=== PATIENT | female | born 1955 | race Caucasian/White ===

== ENCOUNTER 2020-01-20 14:39 | Emergency (ER) | payer SELFPAY ==
[~2020-01-20] VITALS: Ht 152.4 cm; Wt 116.1 kg
== END 2020-01-20 17:11 | disposition home or self-care (01) ==
LOC: ER 14:39
DX: Z76.0 Encounter for issue of repeat prescription (principal); F17.200 Nicotine dependence, unspecified, uncomplicated; Z88.6 Allergy status to analgesic agent
CPT/HCPCS: 99281

== ENCOUNTER 2020-02-21 21:19 | Inpatient (IN) | payer OTHER ==
[~2020-02-21] VITALS: Ht 149.9 cm; Wt 103.8 kg
[2020-02-21] MEDS ORDERED: CELE100 (21:43)
[2020-02-21 22:05] LABS: Calcium, Ionized (POC) 0.98 mmol/L (1.10-1.46); Chloride (POC) 101 mmol/L (98-108); Creatinine (POC) 1.4 mg/dL (0.6-1.0); Glucose (ISTAT POC) 123 mg/dL (70-99); Hemoglobin (POC) 13.3 g/dL (12.0-16.0); Potassium (POC) 3.2 mmol/L (3.5-5.5); Sodium (POC) 142 mmol/L (135-148); Total CO2 (POC) 31 mmol/L (21-32)
[2020-02-21 22:06] LABS: BASOPHILS ABSOLUTE AUTO 0.06 K/mm3 (0.00-0.23); BASOPHILS PERCENT AUTO 1 % (0-2); EOSINOPHILS ABSOLUTE AUTO 0.09 K/mm3 (0.00-0.68); EOSINOPHILS PERCENT AUTO 1 % (0-6); Hematocrit 38.1 % (33.0-51.0); Hemoglobin 12.5 g/dL (11.5-16.0); IMMATURE GRAN ABSOLUTE AUTO 0.06 K/mm3 (0.00-0.10); IMMATURE GRAN PERCENT AUTO 1 % (0-1); LYMPHOCYTES ABSOLUTE AUTO 1.62 K/mm3 (0.84-5.20); LYMPHOCYTES PERCENT AUTO 22 % (21-46); MONOCYTES ABSOLUTE AUTO 0.51 K/mm3 (0.16-1.47); MONOCYTES PERCENT AUTO 7 % (4-13); Mean Corpuscular HGB 31.7 pg (26.0-34.0); Mean Corpuscular HGB Conc 32.8 g/dL (31.5-36.5); Mean Corpuscular Volume 97 fL (80-100); NEUTROPHILS ABSOLUTE AUTO 5.09 K/mm3 (1.96-9.15); NEUTROPHILS PERCENT AUTO 69 % (41-73); Platelet Count 178 K/mm3 (150-400); RDW Coefficient Variation 15.1 % (11.7-14.2); RDW Standard Deviation 54.2 fL (35.1-46.3); Red Blood Cell Count 3.94 M/mm3 (3.80-5.20); White Blood Cell Count 7.43 K/mm3 (4.00-11.30)
[2020-02-21 22:32] LABS: Alanine Aminotransfer (ALT/SGP 34 U/L (12-78); Albumin, Blood 3.6 g/dL (3.4-5.0); Albumin/Globulin Ratio 0.9 (0.8-1.8); Alk Phos 54 U/L (50-136); Anion Gap 9 mmol/L (6-16); Aspartate Aminotrans (AST/SGOT 39 U/L (12-37); Bilirubin, Total 0.3 mg/dL (0.1-1.0); Blood Urea Nitrogen 19 mg/dL (8-24); Bun/Creatinine Ratio 14.2 (12.0-20.0); CO2, Blood 28 mmol/L (21-32); Calcium, Blood 8.7 mg/dL (8.5-10.1); Chloride, Blood 103 mmol/L (98-108); Creatinine, Blood 1.34 mg/dL (0.40-1.00); Free Thyroxine 0.36 ng/dL (0.70-1.60); Glomerular Filtration Rate 42 (60-); Glucose, Blood 120 mg/dL (70-99); Potassium, Blood 3.2 mmol/L (3.5-5.5); Sodium, Blood 140 mmol/L (136-145); Total Protein, Blood 7.6 g/dL (6.4-8.2); Troponin I <0.015 ng/mL (0.000-0.040)
[2020-02-21 22:39] LABS: PCO2 Arterial 49.7 mmHg (35-45)
[2020-02-22 00:05] LABS: U Amphetamine Screen Not Detected; U Barbituate Screen Not Detected; U Benzodiazapine Screen Not Detected; U Buprenorphine Screen Not Detected; U Cannabinoids Screen Not Detected; U Cocaine Screen Not Detected; U Methadone Screen Not Detected; U Methamphetamine Screen Not Detected; U Opiates Screen Not Detected; U Oxycodone Screen Not Detected; U Phencyclidine Screen Not Detected; U Propoxyphene Screen Not Detected
[2020-02-22 00:38] LABS: Blood, Urine 1+ (Neg); Color, Urine Amber (P-Yellow); Glucose Qualitative, Urine Neg (Neg); Ketones, Urine 1+ (Neg); Leukocyte Esterase, Urine 1+ (Neg); Nitrite, Urine Neg (Neg); Protein, Urine 2+ (Neg); Urobilinogen, Urine 1+ (Normal)
[2020-02-22 00:39] LABS: Appearance, Urine Hazy (Clear); Bilirubin, Urine 1+ (Neg)
[2020-02-22 00:44] LABS: Bacteria Many /hpf; Hyaline Casts TNTC /lpf (0-2); Mucus Mod (0-Heavy); Red Blood Cells, Urine 0-2 /hpf (0-2); Squamous Epithelial Cells Few /hpf (Few); White Blood Cells, Urine 25-50 /hpf (0-5)
[2020-02-22 01:33] LABS: BASOPHILS ABSOLUTE AUTO 0.07 K/mm3 (0.00-0.23); BASOPHILS PERCENT AUTO 1 % (0-2); EOSINOPHILS ABSOLUTE AUTO 0.06 K/mm3 (0.00-0.68); EOSINOPHILS PERCENT AUTO 1 % (0-6); Hematocrit 38.1 % (33.0-51.0); Hemoglobin 12.6 g/dL (11.5-16.0); IMMATURE GRAN ABSOLUTE AUTO 0.05 K/mm3 (0.00-0.10); IMMATURE GRAN PERCENT AUTO 1 % (0-1); LYMPHOCYTES ABSOLUTE AUTO 1.61 K/mm3 (0.84-5.20); LYMPHOCYTES PERCENT AUTO 17 % (21-46); MONOCYTES ABSOLUTE AUTO 0.55 K/mm3 (0.16-1.47); MONOCYTES PERCENT AUTO 6 % (4-13); Mean Corpuscular HGB 32.1 pg (26.0-34.0); Mean Corpuscular HGB Conc 33.1 g/dL (31.5-36.5); Mean Corpuscular Volume 97 fL (80-100); Mean Platelet Volume 10.7 fL (9.1-12.4); NEUTROPHILS ABSOLUTE AUTO 7.34 K/mm3 (1.96-9.15); NEUTROPHILS PERCENT AUTO 76 % (41-73); Platelet Count 179 K/mm3 (150-400); RDW Coefficient Variation 15.2 % (11.7-14.2); RDW Standard Deviation 53.9 fL (35.1-46.3); Red Blood Cell Count 3.92 M/mm3 (3.80-5.20); White Blood Cell Count 9.68 K/mm3 (4.00-11.30)
[2020-02-22 01:56] LABS: Albumin, Blood 3.9 g/dL (3.4-5.0); Bilirubin, Total 0.4 mg/dL (0.1-1.0); Bun/Creatinine Ratio 14.4 (12.0-20.0); Calcium, Blood 8.7 mg/dL (8.5-10.1); Creatinine, Blood 1.32 mg/dL (0.40-1.00); Potassium, Blood 3.5 mmol/L (3.5-5.5); Total Protein, Blood 7.9 g/dL (6.4-8.2)
[2020-02-22 03:42] LABS: Source, Urine Clean Catch
[2020-02-22 03:45] LABS: Appearance, Urine Clear (Clear); Bilirubin, Urine Neg (Neg); Blood, Urine 1+ (Neg); Color, Urine Yellow (P-Yellow); Glucose Qualitative, Urine Neg (Neg); Ketones, Urine Neg (Neg); Leukocyte Esterase, Urine 1+ (Neg); Nitrite, Urine Neg (Neg); Protein, Urine 2+ (Neg); Specific Gravity, Urine 1.025 (1.003-1.022); Urobilinogen, Urine NORM (Normal)
[2020-02-22 04:05] LABS: U Amphetamine Screen Not Detected; U Barbituate Screen Not Detected; U Benzodiazapine Screen Not Detected; U Buprenorphine Screen Not Detected; U Cannabinoids Screen Not Detected; U Cocaine Screen Not Detected; U Methadone Screen Not Detected; U Methamphetamine Screen Not Detected; U Opiates Screen Not Detected; U Oxycodone Screen Not Detected; U Phencyclidine Screen Not Detected; U Propoxyphene Screen Not Detected
[2020-02-22 04:12] LABS: Red Blood Cells, Urine 0-2 /hpf (0-2)
[2020-02-22 04:13] LABS: Bacteria Many /hpf; Hyaline Casts 25-50 /lpf (0-2); Mucus Mod (0-Heavy); Squamous Epithelial Cells Not Seen /hpf (Few)
[2020-02-25 05:53] LABS: Free Thyroxine 0.58 ng/dL (0.70-1.60); Thyroid Stimulating Hormone 95.6 uIU/mL (0.360-4.800)
[2020-02-26 06:14] LABS: Anion Gap 6 mmol/L (6-16); Blood Urea Nitrogen 10 mg/dL (8-24); Bun/Creatinine Ratio 12.8 (12.0-20.0); CO2, Blood 29 mmol/L (21-32); Calcium, Blood 8.8 mg/dL (8.5-10.1); Chloride, Blood 107 mmol/L (98-108); Creatinine, Blood 0.78 mg/dL (0.40-1.00); Glomerular Filtration Rate >60 (60-); Glucose, Blood 97 mg/dL (70-99); Sodium, Blood 142 mmol/L (136-145)
[2020-02-29 07:38] LABS: Albumin, Blood 3.6 g/dL (3.4-5.0); Anion Gap 5 mmol/L (6-16); Blood Urea Nitrogen 24 mg/dL (8-24); Bun/Creatinine Ratio 28.7 (12.0-20.0); CO2, Blood 29 mmol/L (21-32); Calcium, Blood 8.7 mg/dL (8.5-10.1); Chloride, Blood 108 mmol/L (98-108); Creatinine, Blood 0.84 mg/dL (0.40-1.00); Free Thyroxine 0.94 ng/dL (0.70-1.60); Glomerular Filtration Rate >60 (60-); Glucose, Blood 100 mg/dL (70-99); Phosphorus, Blood 3.7 mg/dL (2.5-4.9); Potassium, Blood 3.8 mmol/L (3.5-5.5); Sodium, Blood 142 mmol/L (136-145)
[2020-02-29] MEDS ORDERED: ASPI81CH PO (15:32)
[2020-02-29] MEDS ORDERED: ATOR20 PO (15:32)
[2020-02-29] MEDS ORDERED: REFRESH CELLUV1 EACH BOTHEYES (15:33)
[2020-02-29] MEDS ORDERED: NIFE60ER PO (15:34)
[2020-02-29] MEDS ORDERED: SYNTHROID0.2 MG PO (15:34)
== END 2020-02-29 19:26 | disposition home health service (06) | DRG 81 ==
LOC: ER 21:19 → ERHOLD 23:43 → ICUW 23:43 → MEDS 23:43 → ICUW 02-22 00:58 → MEDS 02-23 15:47
PROVIDERS: Emergency Medicine; Hospitalist; Internal Medicine Endocrinology, Diabetes & Metabolism; ADMIT Internal Medicine
DX: E03.5 Myxedema coma (principal); Z68.42 Body mass index [BMI] 45.0-49.9, adult; G93.49 Other encephalopathy; J44.9 Chronic obstructive pulmonary disease, unspecified; Z86.73 Personal history of transient ischemic attack (TIA), and cerebral infarction without residual deficits; E66.01 Morbid (severe) obesity due to excess calories; F32.9 Major depressive disorder, single episode, unspecified; Z91.14 Patient's other noncompliance with medication regimen; Z90.09 Acquired absence of other part of head and neck; R40.2422 Glasgow coma scale score 9-12, at arrival to emergency department; F17.210 Nicotine dependence, cigarettes, uncomplicated; E87.6 Hypokalemia; I12.9 Hypertensive chronic kidney disease with stage 1 through stage 4 chronic kidney disease, or unspecified chronic kidney disease; N18.3 Chronic kidney disease, stage 3 (moderate); Z91.81 History of falling; G62.9 Polyneuropathy, unspecified
CPT/HCPCS: 36415; 36600; 51702; 70450; 71045; 80047; 80048; 80053; 80069; 80400; 81001; 82533; 82803; 82947; 83605; 83735; 83880; 84439; 84443; 84484; 85014; 85025; 87040; 87077; 87086; 87186; 93005; 93010; 93306; 96361; 96374; 96375; 97110; 97112; 97116; 97162; 99285-25; A9270; A9270-GY; J0360; J1650; J1720; J3480; J7030; U0002

== ENCOUNTER → 2020-05-31 | Outpatient (CLI) | payer MEDICARE ==
[~2020-05-31] MED LIST: ASPI81CH PO; ATOR20 PO; CELE100; NIFE60ER PO; REFRESH CELLUV1 EACH BOTHEYES; SYNTHROID0.2 MG PO
[2020-05-31 18:34] LABS: Free Thyroxine 2.75 ng/dL (0.70-1.60)
[2020-05-31 18:39] LABS: Thyroid Stimulating Hormone 0.057 uIU/mL (0.360-4.800)
== END ==
LOC: LAB SHORT 17:23 → LAB 17:23
PROVIDERS: Physician Assistant
DX: E89.0 Postprocedural hypothyroidism (principal)
CPT/HCPCS: 84439; 84443

== ENCOUNTER 2020-07-08 12:50 | Inpatient (IN) | payer MEDICARE ==
[~2020-07-08] VITALS: Ht 149.9 cm; Wt 81.2 kg
[~2020-07-08 12:50] MED LIST changes: -ASPI81CH PO; -ATOR20 PO; -NIFE60ER PO; -SYNTHROID0.2 MG PO
[2020-07-08 13:46] LABS: BASOPHILS ABSOLUTE AUTO 0.07 K/mm3 (0.00-0.23); BASOPHILS PERCENT AUTO 1 % (0-2); EOSINOPHILS ABSOLUTE AUTO 0.15 K/mm3 (0.00-0.68); EOSINOPHILS PERCENT AUTO 2 % (0-6); Hematocrit 40.7 % (33.0-51.0); Hemoglobin 13.1 g/dL (11.5-16.0); IMMATURE GRAN ABSOLUTE AUTO 0.02 K/mm3 (0.00-0.10); IMMATURE GRAN PERCENT AUTO 0 % (0-1); LYMPHOCYTES ABSOLUTE AUTO 1.87 K/mm3 (0.84-5.20); LYMPHOCYTES PERCENT AUTO 24 % (21-46); MONOCYTES ABSOLUTE AUTO 0.66 K/mm3 (0.16-1.47); MONOCYTES PERCENT AUTO 9 % (4-13); Mean Corpuscular HGB Conc 32.2 g/dL (31.5-36.5); Mean Corpuscular Volume 84 fL (80-100); NEUTROPHILS PERCENT AUTO 64 % (41-73); Platelet Count 258 K/mm3 (150-400); RDW Coefficient Variation 15.5 % (11.7-14.2); Red Blood Cell Count 4.86 M/mm3 (3.80-5.20); White Blood Cell Count 7.67 K/mm3 (4.00-11.30)
[2020-07-08 14:09] LABS: Alanine Aminotransfer (ALT/SGP 28 U/L (12-78); Albumin, Blood 3.4 g/dL (3.4-5.0); Albumin/Globulin Ratio 0.8 (0.8-1.8); Alk Phos 100 U/L (50-136); Anion Gap 6 mmol/L (6-16); Aspartate Aminotrans (AST/SGOT 27 U/L (12-37); Bilirubin, Total 0.3 mg/dL (0.1-1.0); Blood Urea Nitrogen 15 mg/dL (8-24); Bun/Creatinine Ratio 29.1 (12.0-20.0); CO2, Blood 27 mmol/L (21-32); Calcium, Blood 9.1 mg/dL (8.5-10.1); Chloride, Blood 110 mmol/L (98-108); Creatinine, Blood 0.52 mg/dL (0.40-1.00); Globulin, Blood 4.2 g/dL (2.2-4.0); Glomerular Filtration Rate >60 (60-); Glucose, Blood 100 mg/dL (70-99); Potassium, Blood 3.5 mmol/L (3.5-5.5); Sodium, Blood 143 mmol/L (136-145); Total Protein, Blood 7.6 g/dL (6.4-8.2)
[2020-07-08] MEDS ORDERED: EUTHYROX175 MCG PO (16:35)
[2020-07-08] MEDS ORDERED: NIFE60ER PO (16:36)
[2020-07-08] MEDS ORDERED: Aspir 8181 MG PO (16:36)
[2020-07-08] MEDS ORDERED: ATOR40TA PO (16:36)
--- NOTE | 2020-07-08 18:39 | NUR ---
Received report from Tana RN-ED, patient arrived to unit with delaney and required assistance to slide from gurney to bed. A/Ox3, pleasant. Flu vaccine given per patient request. Bed in lowest position, call light in reach. Will report to oncgisselle RN.
--- NOTE | 2020-07-09 06:35 | NUR ---
SHIFT SUMMARY: VSS. AFEB. AAOX3. ABLE TO COMMUNICATE NEEDS. PERRL. VERY SLIGHT DROOP OF L SIDE OF MOUTH. L CORE MANAGER/PUSH/PULL WEAK COMPARED TO R. GROSS MOTOR MOVEMENT ONLY. REPORTS N/T TO L ARM AND LEG. NO NEW SYMPTOMS. PT IS APPROPRIATELY CONVERSATIONAL BUT WILL ALSO MOAN OUT LOUD WHEN UNCOMFORTABLE RATHER THAN USE CALL BUTTON. REPOSITIONED FOR COMFORT, PT REFUSING PAIN MEDS AT THIS TIME. INCONTINENT. LSCTA W/ DIM BASES. OCC NON-PRODUCTIVE COUGH. PT IS A CURRENT EVERY DAY SMOKER BUT REFUSES NICOTINE SUPPLEMENTS AT THIS TIME. NO ACUTE CHANGES OVERNIGHT. WILL CONT TO MONITOR.
--- NOTE | 2020-07-09 10:49 | NUR ---
Echo done by Belem Mccormack RDCS.
--- NOTE | 2020-07-09 12:05 | NUR ---
D/C CAROTID DUPLEX PATIENT RECEIVED CTA OF HEAD/NECK. PER DR. CARTER, CANCEL US CAROTID. US TECH NOTIFIED.
--- NOTE | 2020-07-09 17:10 | NUR ---
Shift Summary A/Ox4, pleasant and cooperative with care. Has been tearful today d/t acute health concerns, but motivated to improve mobility. Worked with PT/OT/ST today, tolerated all well. Neuro checks remain unchanged since this morning (see neuro assessment). MRI completed. Patient has poor trunk control and unable to sit upright in chair or bedside commode. 2p max assist with gait belt. Continent of bowel, inc/con of bladder. Denies pain, had bowel movement today. Tolerating mechanical soft diet well. Lung sounds clear. Will report to oncoming RN.
[2020-07-09 17:55] LABS: Influenza A, PCR Negative (NEGATIVE); Influenza B, PCR Negative (NEGATIVE); Resp Syncytial Virus, PCR Negative (NEGATIVE); SARS-Cov-2 (COVID-19) PCR, MMC Negative (NEGATIVE)
--- NOTE | 2020-07-09 22:14 | NUR ---
PT REQUESTED TO NO LONGER WEAR SCD'S
--- NOTE | 2020-07-10 04:18 | NUR ---
SHIFT SUMMARY ASSUMED CARE OF PT AT 1900. PT IS A/OX4, PT HAS L SIDED WEAKNESS. HEART SOUNDS REGULAR, TELE SHOWS SINUS @ 81. LUNG SOUNDS DIMINISHED. PT WAS CONTINENT OF BOWEL BUT INCONTINENT OF URINE. PT TOOK MEDS WHOLE IN APPLE SAUCE. NO ACUTE EVENTS DURING THE NIGHT. PT SLEPT T/O THE NIGHT. CALL LIGHT IN REACH, BED IN LOWEST POSTION, WILL CONTINUE TO MONITOR.
--- NOTE | 2020-07-10 16:39 | NUR ---
Shift Summary Worked with PT/OT today, tolerated well. Up in chair for lunch and dinner with 2 max assist. Tearful at times. C/O L shoulder pain from flaccid arm, pillow support provided to prevent subluxation. Incontinent, does not call for brief changes despite education on preventing skin breakdown. Will continue to monitor and check brief routinely. Plan is to discharge to [facility] in [place] tomorrow @ 4476.
[2020-07-10] MEDS ORDERED: ACET325 PO (18:29)
[2020-07-10] MEDS ORDERED: Plavix75 MG PO (18:29)
[2020-07-10] MEDS ORDERED: DULCOLAX400 MG/5 M PO (18:30)
--- NOTE | 2020-07-11 07:52 | NUR ---
SHIFT SUMMARY PATIENT ALERT AND ORIENTED. HAD NO COMPLAINTS OF PAIN OVERNIGHT AND WAS ABLE TO SLEEP WELL. IV PATENT AND FLUSHED. BED IN LOWEST POSITION WITH WHEELS LOCKED AND ALARM ON. CALL LIGHT WITHIN REACH. REPORT GIVEN TO ONCOMING RN.
--- NOTE | 2020-07-11 09:41 | NUR ---
DISCHARGE DISCHARGE TO [facility] IN [place]. ATTEMPTED TO CALL REPORT, RN DID NOT ANSWER PHONE, PHONE NUMBER LEFT FOR RETURN CALL. PT PICKED UP FOR W/C TRANSPORT AT THIS TIME.
--- NOTE | 2020-07-11 09:52 | NUR ---
REPORT GIVEN TO FILIPPO RUDOLPH RN, THIS RN WILL BE AVAILABLE TODAY IF MORE QUESTIONS ARISE
== END 2020-07-11 09:39 | DRG 65 ==
LOC: ER 12:50 → MEDS 17:26 → ENPENDDIS 07-10 14:48 → MEDS 07-11 09:39
PROVIDERS: Emergency Medicine; ADMIT Internal Medicine
DX: I63.50 Cerebral infarction due to unspecified occlusion or stenosis of unspecified cerebral artery (principal); I69.354 Hemiplegia and hemiparesis following cerebral infarction affecting left non-dominant side; Z68.42 Body mass index [BMI] 45.0-49.9, adult; E66.01 Morbid (severe) obesity due to excess calories; E78.5 Hyperlipidemia, unspecified; F17.210 Nicotine dependence, cigarettes, uncomplicated; F32.9 Major depressive disorder, single episode, unspecified; I10 Essential (primary) hypertension; J44.9 Chronic obstructive pulmonary disease, unspecified; E89.0 Postprocedural hypothyroidism
CPT/HCPCS: 0241U; 36415; 70450; 70496; 70498; 70551; 80053; 84484; 85025; 92526; 92610; 93005; 93010; 93308; 93321; 96372; 97110; 97112; 97162; 97166; 97530; 99285-25; A9270; A9270-GY; G0008; G0378; J1650; Q2038; Q9967

== ENCOUNTER → 2021-01-01 | Outpatient (CLI) | payer MEDICARE, OTHER ==
[~2021-01-01] MED LIST changes: +ACET325 PO; +ATOR40TA PO; +Aspir 8181 MG PO; +DULCOLAX400 MG/5 M PO; +EUTHYROX175 MCG PO; +NIFE60ER PO; +Plavix75 MG PO
[2021-01-01 13:12] LABS: Source, Urine Clean Catch
[2021-01-01 15:40] LABS: Appearance, Urine Hazy (Clear); Bilirubin, Urine Neg (Neg); Blood, Urine Neg (Neg); Color, Urine Yellow (P-Yellow); Glucose Qualitative, Urine Neg (Neg); Ketones, Urine Neg (Neg); Leukocyte Esterase, Urine Neg (Neg); Nitrite, Urine Neg (Neg); Protein, Urine Neg (Neg); Urobilinogen, Urine NORM (Normal)
[2021-01-01 16:11] LABS: Red Blood Cells, Urine Not Seen /hpf (0-2); Squamous Epithelial Cells Mod /hpf (Few); White Blood Cells, Urine 0-2 /hpf (0-5)
[2021-01-01 16:12] LABS: Bacteria Mod /hpf
== END | disposition home or self-care (01) ==
LOC: LAB HH 13:10
PROVIDERS: Physician Assistant
DX: N39.0 Urinary tract infection, site not specified (principal)
CPT/HCPCS: 81001; 87086

== ENCOUNTER → 2021-01-29 | Outpatient (CLI) | payer MEDICARE, OTHER ==
[2021-01-29 19:54] LABS: BASOPHILS ABSOLUTE AUTO 0.08 K/mm3 (0.00-0.23); BASOPHILS PERCENT AUTO 1 % (0-2); EOSINOPHILS ABSOLUTE AUTO 0.24 K/mm3 (0.00-0.68); EOSINOPHILS PERCENT AUTO 3 % (0-6); Hematocrit 43.4 % (33.0-51.0); Hemoglobin 13.9 g/dL (11.5-16.0); IMMATURE GRAN ABSOLUTE AUTO 0.03 K/mm3 (0.00-0.10); IMMATURE GRAN PERCENT AUTO 0 % (0-1); LYMPHOCYTES ABSOLUTE AUTO 1.76 K/mm3 (0.84-5.20); LYMPHOCYTES PERCENT AUTO 19 % (21-46); MONOCYTES ABSOLUTE AUTO 0.67 K/mm3 (0.16-1.47); MONOCYTES PERCENT AUTO 7 % (4-13); Mean Corpuscular HGB 29.1 pg (26.0-34.0); Mean Corpuscular Volume 91 fL (80-100); Mean Platelet Volume 11.2 fL (9.1-12.4); NEUTROPHILS ABSOLUTE AUTO 6.49 K/mm3 (1.96-9.15); NEUTROPHILS PERCENT AUTO 70 % (41-73); Platelet Count 287 K/mm3 (150-400); RDW Standard Deviation 43.8 fL (35.1-46.3); Red Blood Cell Count 4.77 M/mm3 (3.80-5.20); White Blood Cell Count 9.27 K/mm3 (4.00-11.30)
[2021-01-29 20:17] LABS: Alanine Aminotransfer (ALT/SGP 21 U/L (12-78); Albumin, Blood 3.6 g/dL (3.4-5.0); Albumin/Globulin Ratio 0.7 (0.8-1.8); Alk Phos 129 U/L (50-136); Anion Gap 6 mmol/L (6-16); Aspartate Aminotrans (AST/SGOT 9 U/L (12-37); Bilirubin, Total 0.3 mg/dL (0.1-1.0); Blood Urea Nitrogen 16 mg/dL (8-24); Bun/Creatinine Ratio 24.6 (12.0-20.0); CO2, Blood 28 mmol/L (21-32); Calcium, Blood 9.4 mg/dL (8.5-10.1); Chloride, Blood 107 mmol/L (98-108); Creatinine, Blood 0.65 mg/dL (0.40-1.00); Free Thyroxine 1.52 ng/dL (0.70-1.60); Glomerular Filtration Rate >60 (60-); Glucose, Blood 86 mg/dL (70-99); Potassium, Blood 3.7 mmol/L (3.5-5.5); Sodium, Blood 141 mmol/L (136-145); Total Protein, Blood 8.6 g/dL (6.4-8.2); Triiodothyronine, Free 2.56 pg/mL (2.18-3.98)
== END | disposition home or self-care (01) ==
LOC: LAB SHORT 15:10
PROVIDERS: Physician Assistant
DX: E03.9 Hypothyroidism, unspecified (principal); R53.83 Other fatigue
CPT/HCPCS: 80053; 84439; 84443; 84481; 85025

== ENCOUNTER 2021-10-07 18:35 | Inpatient (IN) | payer OTHER ==
[~2021-10-07] VITALS: Ht 149.9 cm; Wt 93.6 kg
[2021-10-07 20:18] LABS: BASOPHILS ABSOLUTE AUTO 0.03 K/mm3 (0.00-0.23); BASOPHILS PERCENT AUTO 0 % (0-2); EOSINOPHILS ABSOLUTE AUTO 0.04 K/mm3 (0.00-0.68); EOSINOPHILS PERCENT AUTO 1 % (0-6); Hematocrit 51.4 % (33.0-51.0); Hemoglobin 16.9 g/dL (11.5-16.0); IMMATURE GRAN ABSOLUTE AUTO 0.02 K/mm3 (0.00-0.10); IMMATURE GRAN PERCENT AUTO 0 % (0-1); LYMPHOCYTES ABSOLUTE AUTO 1.23 K/mm3 (0.84-5.20); LYMPHOCYTES PERCENT AUTO 18 % (21-46); MONOCYTES ABSOLUTE AUTO 0.22 K/mm3 (0.16-1.47); MONOCYTES PERCENT AUTO 3 % (4-13); Mean Corpuscular HGB 29.8 pg (26.0-34.0); Mean Corpuscular HGB Conc 32.9 g/dL (31.5-36.5); Mean Corpuscular Volume 91 fL (80-100); Mean Platelet Volume 10.9 fL (9.1-12.4); NEUTROPHILS ABSOLUTE AUTO 5.17 K/mm3 (1.96-9.15); NEUTROPHILS PERCENT AUTO 77 % (41-73); Platelet Count 106 K/mm3 (150-400); RDW Coefficient Variation 16.9 % (11.7-14.2); RDW Standard Deviation 55.5 fL (35.1-46.3); Red Blood Cell Count 5.68 M/mm3 (3.80-5.20); White Blood Cell Count 6.71 K/mm3 (4.00-11.30)
[2021-10-07 20:37] LABS: Alanine Aminotransfer (ALT/SGP 73 U/L (12-78); Albumin, Blood 3.5 g/dL (3.4-5.0); Albumin/Globulin Ratio 0.8 (0.8-1.8); Alk Phos 112 U/L (50-136); Anion Gap 4 mmol/L (6-16); Aspartate Aminotrans (AST/SGOT 67 U/L (12-37); Bilirubin, Total 0.2 mg/dL (0.1-1.0); Blood Urea Nitrogen 20 mg/dL (8-24); Bun/Creatinine Ratio 22.3 (12.0-20.0); CO2, Blood 32 mmol/L (21-32); Calcium, Blood 9.4 mg/dL (8.5-10.1); Chloride, Blood 108 mmol/L (98-108); Ethanol (Alcohol), Blood, Med <3 mg/dL; Globulin, Blood 4.5 g/dL (2.2-4.0); Glomerular Filtration Rate >60 (60-); Glucose, Blood 134 mg/dL (70-99); Sodium, Blood 144 mmol/L (136-145)
[2021-10-07 21:24] LABS: U Amphetamine Screen DETECTED; U Methamphetamine Screen DETECTED; U Opiates Screen DETECTED
[2021-10-07 21:25] LABS: U Barbituate Screen Not Detected; U Benzodiazapine Screen Not Detected; U Buprenorphine Screen Not Detected; U Cannabinoids Screen Not Detected; U Cocaine Screen Not Detected; U Methadone Screen Not Detected; U Oxycodone Screen Not Detected; U Phencyclidine Screen Not Detected; U Propoxyphene Screen Not Detected
[2021-10-07 21:54] LABS: Source, Urine Straight Cath
[2021-10-07 22:07] LABS: Bilirubin, Urine Neg (Neg); Blood, Urine 1+ (Neg); Glucose Qualitative, Urine Neg (Neg); Ketones, Urine Neg (Neg); Leukocyte Esterase, Urine 1+ (Neg); Nitrite, Urine Pos (Neg); Protein, Urine 1+ (Neg); Specific Gravity, Urine 1.025 (1.003-1.022); Urobilinogen, Urine 1+ (Normal)
[2021-10-07 22:14] LABS: Appearance, Urine Hazy (Clear); Color, Urine Amber (P-Yellow); Squamous Epithelial Cells Rare /hpf (Few)
[2021-10-07 22:15] LABS: Bacteria Many /hpf
[2021-10-08 03:03] LABS: Influenza A, PCR NEGATIVE (NEGATIVE); Influenza B, PCR NEGATIVE (NEGATIVE); Resp Syncytial Virus, PCR NEGATIVE (NEGATIVE); SARS-Cov-2 (COVID-19) PCR, MMC NEGATIVE (NEGATIVE)
[2021-10-08 03:21] LABS: BASOPHILS ABSOLUTE AUTO 0.03 K/mm3 (0.00-0.23); BASOPHILS PERCENT AUTO 1 % (0-2); EOSINOPHILS ABSOLUTE AUTO 0.04 K/mm3 (0.00-0.68); EOSINOPHILS PERCENT AUTO 1 % (0-6); Hematocrit 40.6 % (33.0-51.0); Hemoglobin 13.4 g/dL (11.5-16.0); IMMATURE GRAN ABSOLUTE AUTO 0.03 K/mm3 (0.00-0.10); IMMATURE GRAN PERCENT AUTO 1 % (0-1); LYMPHOCYTES PERCENT AUTO 24 % (21-46); MONOCYTES ABSOLUTE AUTO 0.22 K/mm3 (0.16-1.47); MONOCYTES PERCENT AUTO 4 % (4-13); Mean Corpuscular Volume 91 fL (80-100); NEUTROPHILS ABSOLUTE AUTO 3.78 K/mm3 (1.96-9.15); NEUTROPHILS PERCENT AUTO 70 % (41-73); Platelet Count 94 K/mm3 (150-400); RDW Coefficient Variation 16.5 % (11.7-14.2); RDW Standard Deviation 54.8 fL (35.1-46.3); Red Blood Cell Count 4.47 M/mm3 (3.80-5.20)
[2021-10-08 04:00] LABS: Alanine Aminotransfer (ALT/SGP 54 U/L (12-78); Albumin, Blood 2.6 g/dL (3.4-5.0); Albumin/Globulin Ratio 0.8 (0.8-1.8); Alk Phos 85 U/L (50-136); Anion Gap 5 mmol/L (6-16); Aspartate Aminotrans (AST/SGOT 54 U/L (12-37); Bilirubin, Total 0.2 mg/dL (0.1-1.0); Blood Urea Nitrogen 17 mg/dL (8-24); Bun/Creatinine Ratio 24.2 (12.0-20.0); CO2, Blood 27 mmol/L (21-32); Calcium, Blood 7.9 mg/dL (8.5-10.1); Chloride, Blood 116 mmol/L (98-108); Globulin, Blood 3.3 g/dL (2.2-4.0); Glomerular Filtration Rate >60 (60-); Glucose, Blood 93 mg/dL (70-99); Potassium, Blood 3.4 mmol/L (3.5-5.5); Sodium, Blood 148 mmol/L (136-145); Total Protein, Blood 5.9 g/dL (6.4-8.2)
--- NOTE | 2021-10-08 09:39 | NUR ---
CARE OF PT ASSUMED AT 0700. PT OBTUNDED. OPENS EYES BRIEFLY WITH STERNAL RUB. DOES NOT FOLLOW ANY DIRECTIONS. BP IS LABILE W SOFT PRESSURES. PT HAS POOR GAG, NT SUCTIONED BY RT THIS AM. THICK DARK YELLOW SECRETIONS SUCTIONED. PT DESATURATED TO 85% ON 2L VIA N/C. N/C MOVED TO MOUTH AND INCREASED TO 4L. SATS NOW >95%. DR CAVAZOS AT BEDSIDE THIS AM, FULL REPORT GIVEN. PICC LINE TO BE PLACED. PT'S GIVEN UPDATE, MRI SCREENING FILLED OUT OVER PHONE. PT SKIN COVERED IN DIRT; PT BATHED. REPORT FROM THAT THEY ARE HOMELESS. D51/2NS ORDERED AT 100CC/HR.
--- NOTE | 2021-10-08 11:07 | NUR ---
MRI TO BE HELD FOR NOW. PT DESATURATED TO MID 80'S. VENTI MASK PLACED. 10L/45% PT REQUIRED NT SUCTIONING BY RT. PT IS SLIGHTLY MORE AWAKE. OPENS EYES SPONT. ABLE TO WEAKLY MATHEMATICS INSTRUCTOR TO COMMAND EQUAL/BILAT. DR CAVAZOS UPDATED. BP REMAINS LABILE, MORE HYPERTENSIVE NOW.
--- NOTE | 2021-10-08 11:57 | NUR ---
POWERGLIDE PLACED TO ALIYA. NASAL TRUMPET PLACED BY RT. DR CARTER AT BEDSIDE TO SEE PT; FULL UPDATE GIVEN.
--- NOTE | 2021-10-08 12:10 | NUR ---
Patient's friend, Buffy, asks stops me in the hallway and is in tears. He tells me about pt's medical history, their relationship (he states thatey have been for 3 yrs) and his spiritual beliefs. I provide therapeutic listening, emotional support and prayer. Patient expresses gratitude and shows signs of being comforted. I will continue to remain available to patient and family.
[2021-10-08 13:22] LABS: Bun/Creatinine Ratio 17.6 (12.0-20.0); Calcium, Blood 7.9 mg/dL (8.5-10.1); Creatinine, Blood 1.02 mg/dL (0.40-1.00); Potassium, Blood 4.6 mmol/L (3.5-5.5)
--- NOTE | 2021-10-08 17:20 | NUR ---
U/0 200 FOR LAST NIGHT AND TODAY'S SHIFT. STOKES CATH FLUSHED AND IS PATENT. DR CAVAZOS CALLED AND NOTIFIED. 500CC FLUID BOLUS ORDERED. WITHIN 30MIN PT STARTED PRODUCING MORE URINE. U/O UP TO 275. PT REMIAINS OBTUNDED W NASAL TRUMPET IN PLACE. PT REQUIRED NT SUCTION SEVERAL TIMES THIS SHIFT.
--- NOTE | 2021-10-08 19:15 | NUR ---
ASSUMPTION OF CARE PT VSS ON CURRENT TREATMENTS. NO S/S OF ACUTE DISTRESS NOTED AT TIME OF ASSUMPTION OF CARE
[2021-10-09 04:37] LABS: BASOPHILS ABSOLUTE AUTO 0.02 K/mm3 (0.00-0.23); BASOPHILS PERCENT AUTO 0 % (0-2); EOSINOPHILS ABSOLUTE AUTO 0.01 K/mm3 (0.00-0.68); EOSINOPHILS PERCENT AUTO 0 % (0-6); Hematocrit 41.9 % (33.0-51.0); Hemoglobin 13.8 g/dL (11.5-16.0); IMMATURE GRAN ABSOLUTE AUTO 0.09 K/mm3 (0.00-0.10); IMMATURE GRAN PERCENT AUTO 1 % (0-1); LYMPHOCYTES ABSOLUTE AUTO 0.95 K/mm3 (0.84-5.20); LYMPHOCYTES PERCENT AUTO 8 % (21-46); MONOCYTES ABSOLUTE AUTO 0.24 K/mm3 (0.16-1.47); MONOCYTES PERCENT AUTO 2 % (4-13); Mean Corpuscular HGB 29.6 pg (26.0-34.0); Mean Corpuscular HGB Conc 32.9 g/dL (31.5-36.5); Mean Corpuscular Volume 90 fL (80-100); NEUTROPHILS ABSOLUTE AUTO 11.35 K/mm3 (1.96-9.15); NEUTROPHILS PERCENT AUTO 90 % (41-73); Platelet Count 86 K/mm3 (150-400); RDW Coefficient Variation 17.1 % (11.7-14.2); RDW Standard Deviation 56.2 fL (35.1-46.3); Red Blood Cell Count 4.67 M/mm3 (3.80-5.20); White Blood Cell Count 12.66 K/mm3 (4.00-11.30)
[2021-10-09 05:09] LABS: Alanine Aminotransfer (ALT/SGP 55 U/L (12-78); Albumin, Blood 2.7 g/dL (3.4-5.0); Albumin/Globulin Ratio 0.7 (0.8-1.8); Alk Phos 88 U/L (50-136); Anion Gap 7 mmol/L (6-16); Aspartate Aminotrans (AST/SGOT 56 U/L (12-37); Bilirubin, Total 0.4 mg/dL (0.1-1.0); Blood Urea Nitrogen 14 mg/dL (8-24); Bun/Creatinine Ratio 17.9 (12.0-20.0); CO2, Blood 25 mmol/L (21-32); Calcium, Blood 7.9 mg/dL (8.5-10.1); Chloride, Blood 113 mmol/L (98-108); Creatinine, Blood 0.78 mg/dL (0.40-1.00); Free Thyroxine 0.58 ng/dL (0.70-1.60); Globulin, Blood 3.7 g/dL (2.2-4.0); Glomerular Filtration Rate >60 (60-); Glucose, Blood 158 mg/dL (70-99); Potassium, Blood 3.5 mmol/L (3.5-5.5); Sodium, Blood 145 mmol/L (136-145); Total Protein, Blood 6.4 g/dL (6.4-8.2); Triiodothyronine, Free 2.65 pg/mL (2.18-3.98)
--- NOTE | 2021-10-09 09:17 | NUR ---
CARE OF PT ASSUMED AT 0700. PT OPENS EYE SPONT. ATTEMPTS TO NOD HEAD TO QUESTIONS. ABLE TO COMMUNITY ARTS CENTRE MANAGER HANDS TO COMMAND, WEAKLY WITH VERY SLOW RESPONSE TO QUESTIONS. PT MOANS ONLY. STRONGER COUGH AND GAG TODAY. SATS 98% ON RA. NASAL TRUMPET STILL IN PLACE. PT CONT TO HAVE HTN AND DIASTOLIC HTN. TEMP 96.7. DR CAVAZOS AT BEDSIDE THIS AM; FULL UPDATE GIVEN. D51/2NS AT 100.
--- NOTE | 2021-10-09 12:17 | NUR ---
DR CAVAZOS CALLED FOR HTN 195/125. LEBATOLOL 10MG GIVEN W GOOD EFFECT. NO OTHER CHANGES. BP NOW 119/93
--- NOTE | 2021-10-09 18:22 | NUR ---
PT SLEPT MOST OF THE SHIFT, WAKING UP W EACH TURN. PT CONT'S TO HAVE GOOD EYE CONTACT, ABLE TO FOLLOW SIMPLE COMMANDS, AND NOD HEAD TO QUESTIONS. PT REMAINS NON-VERBAL OTHER THAN MOANS.
--- NOTE | 2021-10-09 19:10 | NUR ---
ASSUMPTION OF CARE PT CURRENTLY SLEEPING AND WAKENS EASILY TO VERBAL STIMULI. SHE IS RECEIVING D5 1/2NS AT 100MLS/HR. STOKES PATENT AND DRAINING PALE YELLOW/CLEAR URINE. VSS AT THIS TIME, SEE SHIFT ASSESSMENT.
[2021-10-10 03:23] LABS: BASOPHILS ABSOLUTE AUTO 0.03 K/mm3 (0.00-0.23); BASOPHILS PERCENT AUTO 0 % (0-2); EOSINOPHILS ABSOLUTE AUTO 0.05 K/mm3 (0.00-0.68); EOSINOPHILS PERCENT AUTO 1 % (0-6); Hematocrit 38.6 % (33.0-51.0); IMMATURE GRAN ABSOLUTE AUTO 0.04 K/mm3 (0.00-0.10); IMMATURE GRAN PERCENT AUTO 0 % (0-1); LYMPHOCYTES ABSOLUTE AUTO 2.26 K/mm3 (0.84-5.20); LYMPHOCYTES PERCENT AUTO 25 % (21-46); MONOCYTES PERCENT AUTO 5 % (4-13); Mean Corpuscular HGB Conc 33.7 g/dL (31.5-36.5); Mean Corpuscular Volume 89 fL (80-100); Mean Platelet Volume 11.5 fL (9.1-12.4); NEUTROPHILS ABSOLUTE AUTO 6.31 K/mm3 (1.96-9.15); NEUTROPHILS PERCENT AUTO 69 % (41-73); Platelet Count 83 K/mm3 (150-400); RDW Coefficient Variation 16.9 % (11.7-14.2); RDW Standard Deviation 54.7 fL (35.1-46.3); Red Blood Cell Count 4.33 M/mm3 (3.80-5.20); White Blood Cell Count 9.19 K/mm3 (4.00-11.30)
[2021-10-10 03:45] LABS: Alanine Aminotransfer (ALT/SGP 55 U/L (12-78); Albumin, Blood 2.6 g/dL (3.4-5.0); Albumin/Globulin Ratio 0.7 (0.8-1.8); Alk Phos 82 U/L (50-136); Anion Gap 6 mmol/L (6-16); Aspartate Aminotrans (AST/SGOT 60 U/L (12-37); Bilirubin, Total 0.3 mg/dL (0.1-1.0); Blood Urea Nitrogen 12 mg/dL (8-24); Bun/Creatinine Ratio 15.5 (12.0-20.0); CO2, Blood 27 mmol/L (21-32); Calcium, Blood 7.6 mg/dL (8.5-10.1); Chloride, Blood 113 mmol/L (98-108); Creatinine, Blood 0.78 mg/dL (0.40-1.00); Globulin, Blood 3.6 g/dL (2.2-4.0); Glomerular Filtration Rate >60 (60-); Glucose, Blood 125 mg/dL (70-99); Potassium, Blood 2.9 mmol/L (3.5-5.5); Sodium, Blood 146 mmol/L (136-145); Total Protein, Blood 6.2 g/dL (6.4-8.2)
[2021-10-10 03:55] LABS: Free Thyroxine 0.64 ng/dL (0.70-1.60); Triiodothyronine, Free 1.52 pg/mL (2.18-3.98)
--- NOTE | 2021-10-10 06:43 | NUR ---
SHIFT SUMMARY PT RECEIVING D5 1/2NS 100MLS/HR. SHE HAS SLEPT THROUGH THE NIGHT BUT WAKENS EASILY TO VERBAL STIMULI. SHE ANSWERS QUESTIONS BY NODDING/SHAKING HEAD AND SAYING 1-3 WORD PHRASES. SHE IS ON ROOM AIR WITH SPO2 >95%. SHE WAS MEDICATED ONCE PER EMAR FOR HYPERTENSION THIS SHIFT. STOKES PATENT AND DRAINING PALE YELLOW URINE. POTASSIUM WAS 2.[address] DANIEL NOTIFIED AND ORDER RECEIVED FOR 40MEQ KCL WHICH IS CURRENTLY INFUSING. ACTH TEST THIS MORNING AND IS STILL PENDING. WILL REPORT TO ONCOMING RN.
--- NOTE | 2021-10-10 07:42 | NUR ---
PATIENT WAKES EASILY, FOLLOWS DIRECTIONS, TRACKS WITH EYES IN ROOM, ANSWERS Y/N WITH HEAD NOD, REPORT FROM PM RN, REPOSITIONED, RT ROUNDING, CALL LIGHT WITH IN REACH, DENIES PAIN. PATIENT SNORING, WITH IN DIRECT OBSERVATION FROM NURSING STATION
--- NOTE | 2021-10-10 08:29 | NUR ---
PT/OT IN SEEING PATIENT. DR MACY COOPER, [facility] HELD FOR LOW PLT, REPORTED NEUROLIGOCAL IMPROVEMENTS, NO CHANGES TO CARE
--- NOTE | 2021-10-10 09:20 | NUR ---
PATIENT OOB IN CHAIR, LIFT USED TO TRANSFER PATIENT FROM THE BED TO CHAIR, TWO PERSON ASSIST
--- NOTE | 2021-10-10 10:22 | NUR ---
Patient is sitting on a chair and resting. She is minimally responsive to voice and touch (moves her head and attempts to open her eyes to look at me). Did not answer any questions until I asked her if I could pray for her to which she nodded affirmingly. I gladly provide prayer. Patient opens her eyes at the conclusion of the prayer and says, "Amen." Patient remains having her eyes open but does not respond to further questions. I will continue to remain availble to patient and family.
--- NOTE | 2021-10-10 10:44 | NUR ---
SPEECH IN WORKING WITH PATIENT
[2021-10-10 12:36] LABS: Anion Gap 4 mmol/L (6-16); Blood Urea Nitrogen 11 mg/dL (8-24); Bun/Creatinine Ratio 13.9 (12.0-20.0); CO2, Blood 30 mmol/L (21-32); Calcium, Blood 8.2 mg/dL (8.5-10.1); Chloride, Blood 109 mmol/L (98-108); Creatinine, Blood 0.79 mg/dL (0.40-1.00); Glomerular Filtration Rate >60 (60-); Glucose, Blood 140 mg/dL (70-99); Potassium, Blood 3.4 mmol/L (3.5-5.5); Sodium, Blood 143 mmol/L (136-145)
--- NOTE | 2021-10-10 18:34 | NUR ---
PATIENT MORE ALERT AND AWAKE TODAY, ORIENTED, CALL LIGHT WITH IN REACH, PATIENT HAS NOT USED IT, LEFT ARM CONTRACTED, NODS HEAD Y/N, FOLLOWS DIRECTIONS, TRACKS STAFF IN ROOM, SPEECH MOANS AND GARBLED, FEW WORDS UNDERSTANDBLE, FAILED ST, NPO. LS COARSE, WEAK MOIST COUGH WITH MINIMAL SPUTUMN, ENCOURAGED SUCTION YANKER USE AND COUGHING, HTN SBP/DP, SBP 140-180, DP 100-120, PRN LABATOLOL AVAILABLE DID NOT USE THIS SHIFT. TEMP STOKES TO GRAVITY, BUTTOCK SKIN INTACT, RED, APPLIED BARRIER CREAM. WORKED WITH PT/OT, SAT AT THE EDGE OF BED, SAT OOB IN CHAIR FOR 2 HOURS TODAY WITH LIFT HELP, WILL RELAY TO PM RN, MICHAEL
--- NOTE | 2021-10-10 20:54 | NUR ---
ASSUEMED CARE AT 1900 PT LAYING IN BED LOOKING AROUND AT SHIFT CHANGE. PT IS ALERT AND FOLLOWING DIRECTIONS WEAKLY; SPEECH IS GARBLED AND UNABLE TO MAKE OUT WORDS; ATTEMPTS TO ANSWER QUESTIONS VERBALLY BUT EVENTUALLY JUST NODS TO Y/N QUESTIONS APPROPRIATELY; LT SIDED WEAKNESS NOTED TO UPPER AND LOWER EXTREMITIES; LT ARM CONTRACTED; ATTEMPTS TO ASSIST WITH REPORITIONING. AFEBRILE. SPO2 >93% ON RA; HAS STRONG NONPRODUCTIVE WEAK COUGH. HR 80'S. SBP 150'S; PRN LABETALOL AVAILABLE FOR SBP >165. STOKES IN PLACE DRAINING TO GRAVITY. SALINE LOCKED. SEE SHIFT ASSESSMENT FOR FULL ASSESSMENT.
[2021-10-11 04:26] LABS: BASOPHILS ABSOLUTE AUTO 0.03 K/mm3 (0.00-0.23); BASOPHILS PERCENT AUTO 0 % (0-2); EOSINOPHILS ABSOLUTE AUTO 0.07 K/mm3 (0.00-0.68); EOSINOPHILS PERCENT AUTO 1 % (0-6); Hematocrit 36.8 % (33.0-51.0); Hemoglobin 12.5 g/dL (11.5-16.0); IMMATURE GRAN ABSOLUTE AUTO 0.05 K/mm3 (0.00-0.10); IMMATURE GRAN PERCENT AUTO 1 % (0-1); LYMPHOCYTES ABSOLUTE AUTO 2.13 K/mm3 (0.84-5.20); LYMPHOCYTES PERCENT AUTO 30 % (21-46); MONOCYTES ABSOLUTE AUTO 0.58 K/mm3 (0.16-1.47); MONOCYTES PERCENT AUTO 8 % (4-13); Mean Corpuscular HGB 30.5 pg (26.0-34.0); Mean Corpuscular Volume 90 fL (80-100); Mean Platelet Volume 11.5 fL (9.1-12.4); NEUTROPHILS ABSOLUTE AUTO 4.23 K/mm3 (1.96-9.15); NEUTROPHILS PERCENT AUTO 60 % (41-73); Platelet Count 84 K/mm3 (150-400); RDW Coefficient Variation 16.9 % (11.7-14.2); RDW Standard Deviation 55.5 fL (35.1-46.3); White Blood Cell Count 7.09 K/mm3 (4.00-11.30)
[2021-10-11 04:51] LABS: Anion Gap 5 mmol/L (6-16); Blood Urea Nitrogen 11 mg/dL (8-24); CO2, Blood 31 mmol/L (21-32); Calcium, Blood 8.2 mg/dL (8.5-10.1); Chloride, Blood 108 mmol/L (98-108); Creatinine, Blood 0.65 mg/dL (0.40-1.00); Free Thyroxine 0.68 ng/dL (0.70-1.60); Glomerular Filtration Rate >60 (60-); Glucose, Blood 95 mg/dL (70-99); Potassium, Blood 3.2 mmol/L (3.5-5.5); Sodium, Blood 144 mmol/L (136-145)
--- NOTE | 2021-10-11 05:02 | NUR ---
UPDATE CALLED DR DANIEL REGARDING AM LAB OF POTASSIUM 3.2; NEW ORDERS PROVIDED FOR 40MEQ OF KCL IV X1.
--- NOTE | 2021-10-11 05:16 | NUR ---
END OF SHIFT SUMMARY NO ACUTE EVENTS OVERNIGHT, SHE WAS ABLE TO SLEEP FOR ABOUT FOUR HR BEFORE WAKING UP BUT THEN FELL BACK ASLEEP. PT CONT TO NOT FORM WORDS, JUST GARBLED SPEECH BUT DOES ANSWER Y/N QUESTIONS APPROPRIATLY. AFEBRILE. DENIES PAIN. SPO2 >93% ON RA; CONT TO HAVE WET, STRONG, NOPRODUCTIVE COUGH. HR 70-80'S. SBP IMPROVED AFTER ONE DOSE OF LABETALOL, SBP 118. STOKES IN PLACE WITH 1000ML OUTPUT. PLAN TO STRAT KCL ONCE ARIVED FROM PHARMACY. WILL REPORT TO AM RN WHEN AVAILABLE.
--- NOTE | 2021-10-11 08:34 | NUR ---
patient woke easily, st in workng with patient now
--- NOTE | 2021-10-11 10:38 | NUR ---
PATIENT HAD APNEA, REPORTED TO DR CARTER, BIPAP STARTED, MEDICATED FOR SBP 180S, SBP NOW 133, PATIENT HARDER TO AROUSE, STILL ANSWERS APPRIATELY AND FOLLOWS DIRECTION
[2021-10-11 13:24] LABS: Base Excess Venous 6.3 mmol/L; Bicarbonate Venous 28.5 mmol/L (24.0-30.0); PCO2 Venous 51.8 mmHg (38-42); PO2 Venous 42.2 mmHg (38-42); pH Blood Venous 7.39 (7.34-7.37)
--- NOTE | 2021-10-11 15:18 | NUR ---
REPORTED TO DR CARTER, MINIMAL IMPROVEMENTS WITH PATIENTS NEURO STATUS SINCE ON BIPAP, PATIENT TOLERATING THE BIPAP WELL, REVEIWED OPTIONS FOR A TOX SCREEN OR HEAD CT, DR CARTER TO FOLLOW UP WITH ENDOCRONOLIGISTS RECOMMENDATIONS FOR THE THYROID DOSE. THIS RAVI [place] ASKED THE PATIENTS SOLANGE "DID YOU GIVE ANY MEDICATIONS TO JAMES YESTERDAY?" SOLANGE WAS COOPERATIVE AND ADAMANT THAT HE DID NOT GIVE JAMES ANYTHING, REPORTED THIS TO TRANSPORTATION ASSISTANT VARUN RODRIGUES AND DR CARTER. SBP 158/98, SATS 100%, RESP 15, TEMP 97.7, WCTM
--- NOTE | 2021-10-11 20:21 | NUR ---
ASSUMED CARE AT 1900 PT LAYING IN BED SLEEPING AT SHIFT CHANGE. PT IS REACTIVE TO VERBAL STIMULI AND ANSWERING Y/N QUESTIONS WITH HEAD NODS APPROPRIATLY BUT IS NOT ALERT PREVIOUS DAY; ONLY OPENS EYES WHEN ASKED AND THAN QUICKLY CLOSES THEM AGAIN; PT ABLE TO FOLLOW DIRECTIONS; LT SIDE CONT TO BE MORE WEAK THAN RT SIDE; DENIES PAIN. AFEBRILE. PT ON BIPAP WITH SETTINGS 16/8, FIO2 28%, SPO2 100%, RR 15; PT Vt 200-300 WHILE RESTING AND ASLEEP VSS WHEN THIS OCCURS, WHEN STIMULATED Vt 300-400; PT COUGHS WHEN ASKED BUT NONPRODUCTIVE. HR 70'S. SBP 150'S; PRN LABETALOL AVAILABLE FOR SBP >165. STOKES IN PLACE AND DRAINING TO GRAVITY. PLAN TO CALL HOSPITALIST REGARDING FLUID ORDER CLARIFICATION. SEE SHIFT ASSESSMENT FOR FULL ASSESSMENT.
[2021-10-12 04:33] LABS: BASOPHILS ABSOLUTE AUTO 0.02 K/mm3 (0.00-0.23); BASOPHILS PERCENT AUTO 0 % (0-2); EOSINOPHILS PERCENT AUTO 2 % (0-6); Hematocrit 35.2 % (33.0-51.0); Hemoglobin 11.5 g/dL (11.5-16.0); IMMATURE GRAN ABSOLUTE AUTO 0.04 K/mm3 (0.00-0.10); IMMATURE GRAN PERCENT AUTO 1 % (0-1); LYMPHOCYTES ABSOLUTE AUTO 1.94 K/mm3 (0.84-5.20); LYMPHOCYTES PERCENT AUTO 37 % (21-46); MONOCYTES ABSOLUTE AUTO 0.61 K/mm3 (0.16-1.47); MONOCYTES PERCENT AUTO 12 % (4-13); Mean Corpuscular HGB Conc 32.7 g/dL (31.5-36.5); Mean Corpuscular Volume 92 fL (80-100); NEUTROPHILS ABSOLUTE AUTO 2.51 K/mm3 (1.96-9.15); NEUTROPHILS PERCENT AUTO 48 % (41-73); Platelet Count 71 K/mm3 (150-400); RDW Standard Deviation 56.6 fL (35.1-46.3); Red Blood Cell Count 3.83 M/mm3 (3.80-5.20); White Blood Cell Count 5.22 K/mm3 (4.00-11.30)
[2021-10-12 05:00] LABS: Albumin, Blood 2.6 g/dL (3.4-5.0); Anion Gap 4 mmol/L (6-16); Blood Urea Nitrogen 13 mg/dL (8-24); Bun/Creatinine Ratio 18.6 (12.0-20.0); CO2, Blood 31 mmol/L (21-32); Chloride, Blood 108 mmol/L (98-108); Glomerular Filtration Rate >60 (60-); Glucose, Blood 119 mg/dL (70-99); Potassium, Blood 4.1 mmol/L (3.5-5.5); Sodium, Blood 143 mmol/L (136-145)
--- NOTE | 2021-10-12 06:32 | NUR ---
END OF SHIFT SUMMARY PT SHOWED POSITIVE IMPROVEMENTS TO MENTAL STATUS; PT WAS ABLE TO VERBALLY ANSWER ORIENTATION QUESTIONS CORRECTLY; PT ORIENTED TO PLACE, TOWN, SELF, FAMILY, AND FOLLOWS DIRECTIONS; WHEN NOT STIMULATED PT IS SLEEPING. AFEBRILE. DENIES PAIN. BIPAP ON FOR MOST OF THE NIGHT, TRIALLED RA AND PT SPO2 WAS IN THE LOW 90'S; PLACED PT ON 4L NC AND SPO2 NOW >97%; CONT TO HAVE SHALLOW BREATHING WITH ALL DEVICES. HR 50-70'S. SBP 140'S. STOKES IN PLACE WITH 235ML ARA URINE OUT. D5 1/2NS INFUSING AT 100ML/HR. WILL REPORT TO AM RN WHEN AVAILABLE.
--- NOTE | 2021-10-12 07:28 | NUR ---
TOOK OVER CARE OF PT AT 0700, PT RESTING ON NASAL CANNULA 3L.
--- NOTE | 2021-10-12 15:27 | NUR ---
PT TRANSFERRED TO PCU ROOM 20
--- NOTE | 2021-10-12 15:30 | NUR ---
NEXT OF KIN JASON DID NOT ANSWER WHEN ATTEMPTING TO NOTIFY OF IN HOUSE TX.
--- NOTE | 2021-10-12 15:31 | NUR ---
TRANSFER Pt arrived from icu and was transferred over to the bed. She was given a warm blanket and positioned in bed. She is a/o x 4. Her hicks is patent. IV fluids infusing as ordered. She verbalized an understanding of the use of the call light and has it in reach.
--- NOTE | 2021-10-12 17:00 | NUR ---
SHIFT SUMMARY Pt continues to rest in bed. She called this nurse for a box of kleenex and when it was brought in she asked about her . She reported that she and her live together in a tent at the [facility]. She continues to be oriented x 4. She has no complaints. She is NPO awaiting a speech eval per report. IV fluids are infusing as ordered and her powerglide is patent. She is able to make her needs known and has her call light in reach.
[2021-10-13 05:09] LABS: Albumin, Blood 2.7 g/dL (3.4-5.0); Anion Gap 5 mmol/L (6-16); Blood Urea Nitrogen 8 mg/dL (8-24); CO2, Blood 30 mmol/L (21-32); Calcium, Blood 8.2 mg/dL (8.5-10.1); Chloride, Blood 109 mmol/L (98-108); Creatinine, Blood 0.62 mg/dL (0.40-1.00); Free Thyroxine 0.75 ng/dL (0.70-1.60); Glomerular Filtration Rate >60 (60-); Glucose, Blood 111 mg/dL (70-99); Phosphorus, Blood 2.4 mg/dL (2.5-4.9); Sodium, Blood 144 mmol/L (136-145)
--- NOTE | 2021-10-13 06:32 | NUR ---
AXO , FLAT AFFECT, FOLLOWING COMMANDS AND COOPERATIVE WITH CARE. PT WAS HYPERTENSIVE PRN MEDICATION GIVEN PER eMAR. BIPAP AT NIGHT , PRN O2, CURRENTLY ON 2L OXYGEN.PT NPO PENDING SWALLOW EVAL WITH SPEECH THERAPY. ON TELE NSR PER PHOTOENGRAVING SKETCH MAKER. STOKES IN PLACE WITH ADEQUATE OUTPUT.PT DENIES CHEST PAIN/PRESSURE AT THIS TIME. CALL LIGHT WITHIN REACH/SIDE RAIL UP X3.
--- NOTE | 2021-10-13 13:10 | NUR ---
PT HAD A SMALL AMOUNT OF YELLOW DISCHARGE COMING FROM THE DOBHOFF TUBING PRIOR TO REMOVING THE GUIDE WIRE. WIRE REMOVED AFTER RADIOLOGIST CONFIRMED PLACEMENT.
--- NOTE | 2021-10-13 13:53 | NUR ---
TUBE FEEDING TO DOHOFF STARTED AT 1340 AT 20ML/HR PER ORDERS WITH 100ML FLUSH EVERY 4 HOURS.
--- NOTE | 2021-10-13 16:13 | NUR ---
Patient is lying in bed and alseep. Pt awakens to the sound of her name and is more clear today. She tells me about her homelessness and [place] She also explains that she has no one who she trusts or has her best interest at heart. She is welcoming of prayer and so I galdly say a prayer for her. Pt responds well to the prayer and voices her appreciation. I beleive some therapeutic alliance is being built and so I will continue to assist pt in dealing with the sources of struggle and pain and point her to self-care and healing activies.
--- NOTE | 2021-10-13 17:44 | NUR ---
SHIFT SUMMARY; ASSUMED CARE AT 0700, SLEEPY DURING SHIFT BUT ARROUSABLE TO VERBAL STIMULI. A/A/OX3. SPEECH EVAL COMPLETE TODAY, ORDERS TO REMAIN NPO. DOBHOFF PLACED WITH FEEDINGS STARTED. CURRENT RATE 20ML/HR. REPOSITIONS SELF IN BED, STOKES INPLACE DRAINING CLEAR YELLODW URINE. MEDICATED FOR HYPERTENSION WITH 10MG LABETOLOL PER ORDERS. 4L O2 VIA NC, WILL CONTINUE TO MONITOR AND TREAT UNTIL CHANGE OF SHIFT.
--- NOTE | 2021-10-13 23:22 | NUR ---
dobhoff tube pulled, replaced , kub done to confirme placement. MD QUINN OK TO USE DOBHOFF TUBE . TUBE FEED RESTARTED BY THIS COMPUTER ENGINEERING TECHNICIAN.
--- NOTE | 2021-10-14 02:41 | NUR ---
PT PULLED DOBHOFF TUBE, PT STATE "DOBHOFF TUBE WAS IRRITATING, SO I PULL IT OUT. PT PENDING BARIUM SWALLOW . CHARGE NURSE NOTIFIED. TUBE FEED ON HOLD.
[2021-10-14 04:13] LABS: BASOPHILS ABSOLUTE AUTO 0.02 K/mm3 (0.00-0.23); BASOPHILS PERCENT AUTO 0 % (0-2); EOSINOPHILS ABSOLUTE AUTO 0.15 K/mm3 (0.00-0.68); EOSINOPHILS PERCENT AUTO 3 % (0-6); Hematocrit 33.3 % (33.0-51.0); Hemoglobin 11.1 g/dL (11.5-16.0); IMMATURE GRAN ABSOLUTE AUTO 0.04 K/mm3 (0.00-0.10); IMMATURE GRAN PERCENT AUTO 1 % (0-1); LYMPHOCYTES ABSOLUTE AUTO 1.51 K/mm3 (0.84-5.20); LYMPHOCYTES PERCENT AUTO 26 % (21-46); MONOCYTES ABSOLUTE AUTO 0.54 K/mm3 (0.16-1.47); MONOCYTES PERCENT AUTO 9 % (4-13); Mean Corpuscular HGB 30.3 pg (26.0-34.0); Mean Corpuscular HGB Conc 33.3 g/dL (31.5-36.5); Mean Corpuscular Volume 91 fL (80-100); Mean Platelet Volume 12.4 fL (9.1-12.4); NEUTROPHILS PERCENT AUTO 61 % (41-73); Platelet Count 94 K/mm3 (150-400); RDW Coefficient Variation 16.2 % (11.7-14.2); RDW Standard Deviation 53.2 fL (35.1-46.3); Red Blood Cell Count 3.66 M/mm3 (3.80-5.20); White Blood Cell Count 5.86 K/mm3 (4.00-11.30)
[2021-10-14 04:34] LABS: Albumin, Blood 2.9 g/dL (3.4-5.0); Anion Gap 6 mmol/L (6-16); Blood Urea Nitrogen 5 mg/dL (8-24); Bun/Creatinine Ratio 8.4 (12.0-20.0); CO2, Blood 30 mmol/L (21-32); Calcium, Blood 8.3 mg/dL (8.5-10.1); Chloride, Blood 108 mmol/L (98-108); Creatinine, Blood 0.59 mg/dL (0.40-1.00); Free Thyroxine 0.87 ng/dL (0.70-1.60); Glomerular Filtration Rate >60 (60-); Glucose, Blood 106 mg/dL (70-99); Phosphorus, Blood 2.7 mg/dL (2.5-4.9); Potassium, Blood 3.2 mmol/L (3.5-5.5); Sodium, Blood 144 mmol/L (136-145)
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
--- NOTE | 2021-10-15 05:12 | NUR ---
SHIFT SUMMARY PT ALERT AND ORIENTED. LETHARGIC THIS EVENING. HR NSR 70'S AND 80'S. BP STABLE. AFEBRILE. ON RA MAINTAINING SATS OVER 93%. STOKES IN PLACE DRAINING CLEAR YELLOW URINE TO GRAVITY. D5W 1/2NW INFUSING IN ALIYA PG. PG DRAWS BLOOD. PT SLEEPING WITH CALL ALARM AT SIDE. WILL CONTINU TO MONITOR UNTIL REPORT GIVEN TO DAYSHIFT RN
[2021-10-15 05:57] LABS: Free Thyroxine 0.88 ng/dL (0.70-1.60)
[2021-10-15 05:58] LABS: Albumin, Blood 2.7 g/dL (3.4-5.0); Anion Gap 7 mmol/L (6-16); Blood Urea Nitrogen 6 mg/dL (8-24); Bun/Creatinine Ratio 8.5 (12.0-20.0); CO2, Blood 28 mmol/L (21-32); Calcium, Blood 8.2 mg/dL (8.5-10.1); Chloride, Blood 107 mmol/L (98-108); Glomerular Filtration Rate >60 (60-); Glucose, Blood 107 mg/dL (70-99); Phosphorus, Blood 2.8 mg/dL (2.5-4.9); Potassium, Blood 3.6 mmol/L (3.5-5.5); Sodium, Blood 142 mmol/L (136-145)
--- NOTE | 2021-10-15 18:21 | NUR ---
PT SUMMARY: PT HAS BEEN SLEEPING MOST OF THE SHIFT, WAKES UP TO EAT, GET CHANGED OR REPOSITONED REMAINS ALERT AND ORIENTED X3. STATUS CHANGED TO MEDICAL STATUS WITH NO TELE, STOKES CATHETER WAS DC'D, PT HAS BEEN INCONTINENT ATTENDS CHANGED TWICE AFTER STOKES WAS DC'D. PT REMAIN ON PUREE DIET, TOLERATING WELL. FLUID MAINTENANCE DC'D. VITALS HRR SR 70'S, SATS ABOVE 92% ON RA, PT HAS BEEN ON 2L OF O2 MOST OF THE SHIFT NEEDED WHEN PT'S SLEEPING, AFEBRILE. PT DENIES ANY KIND OF PAIN/DISCOMFORT. ALWAYS C/O BEING COLD, WARM BLANKETS PROVIDED. PT REPOSITIONED IN BED FOR COMFORT. PT ALSO VERBALIZED THE WILLINGNESS TO GO TO REHAB/SNF FACILITY TO GET BETTER. PT TO MOVE TO 333, WILL GIVE REPORT TO RECEIVING RN
--- NOTE | 2021-10-16 04:43 | NUR ---
SHIFT SUMMARY [facility] AOX3 WITH SOME FORGETFULLNESS AT TIME ABLE TO ANSWER QUESTION ON OXYGEN 2L SPO2 97% DENIED PAIN INCONTINENT CARE X2 OF URINE.PG TO L/A INFUSING D51/2W AT 100ML/HR NO ACUTE CHANGE IN THIS SHIFT
[2021-10-16 07:08] LABS: Free Thyroxine 0.87 ng/dL (0.70-1.60); Thyroid Stimulating Hormone 68.3 uIU/mL (0.360-4.800)
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
--- NOTE | 2021-10-16 18:38 | NUR ---
SHIFT SUMMARY NO ACUTE CHANGES THIS SHIFT. PT WAS REEVALUATED BY ST AND STILL REMAINS ON DIETARY RESTRICTIONS, BUT HAS SOME COUGHING WHEN EATING. HAVE BEEN MONITORING MEALS. PT WAS ABLE TO GET UP IN THE CHAIR WITH PT TODAY AND WORK WITH OT. FLUIDS WERE STOPPED RIGHT ARM BECAME EDEMATOUS. WILL CONTINUE TO MONITOR.
--- NOTE | 2021-10-17 04:50 | NUR ---
SHIFT SUMMARY PATIENT ALERT ORIENTED TO SELF ABLE TO VOICE NEEDS DENIES PAIN IN THIS SHIFT INCONTINET CARE DONE C/O CONTIPATION SMALL HARD BM AT 8PM ROUTINE DOCUSATE ADM WITH RELIFE MEDIUM SOFT BM.NO ACUTE CHANGE NOTED
[2021-10-17 07:06] LABS: Free Thyroxine 0.96 ng/dL (0.70-1.60)
--- NOTE | 2021-10-17 18:45 | NUR ---
SHIFT SUMMARY NO ACUTE CHANGES. TIMING INSPECTOR IS CURRENTLY WORKING GETTING PATIENT INTO [facility] NOW THAT HAS AGREED ON PLAN OF CARE. WILL CONTINUE TO MONITOR.
--- NOTE | 2021-10-18 05:32 | NUR ---
SHIFT SUMMARY 66 YR F ADMITTED ON 10/07/21 FOR ACUTE ENCEPHALOPATHY. FULL CODE. NO ACUTE CHANGES THIS SHIFT. PT RANDOMLY TALKS TO HERSELF AND DOES SEEM TO BE CONFUSED AT TIMES. PICC LINE DRESSING IS STARTING TO COME LOOSE SO IT WAS REINFORCED W/ TAPE. CM IS WORKING ON VICE PRESIDENT PAYER FACILITY CARE.
--- NOTE | 2021-10-18 17:06 | NUR ---
NO ACUTE CHANGES TO PATIENT STATUS THIS SHIFT, AWAITING LTC PLACEMENT. PT REQUIRING FREQUENT REDIRECTION WHEN TRANSFERRING TO CHAIR FROM BED. WILL CONTINUE TO REINFORCE SAFETY PRECAUTIONS WHEN AMBULATING. PATIENTS AT BEDSIDE ALL SHIFT. MIDLINE DRESSING CHANGED THIS SHIFT, NEW DRESSING CDI, FLUSHED PATENT LINE. VITALS STABLE. NO OTHER CONCERNS AT THIS TIME.
--- NOTE | 2021-10-19 03:32 | NUR ---
SHIFT SUMMARY 66 YR F ADMITTED ON 10/07/21 FOR ACUTE ENCEPHALOPATHY. NO ACUTE CHANGES THIS SHIFT. PT HAS SLEPT THE MAJORITY OF THE SHIFT SO THIS NURSE HAS HAD VERY LITTLE INTERACTION WITH HER. SHE APPEARS TO BE RESTING COMFORTABLY AND HAS NOT BEEN CALLING OUT OR RANDOMLY TALKING WHEN NOONE IS THERE.
[2021-10-19] MEDS ORDERED: Amlodipine Bes2.5 MG PO (04:09)
[2021-10-19] MEDS ORDERED: PANT40 PO (04:09)
[2021-10-19] MEDS ORDERED: Prinivil10 MG PO (04:10)
[2021-10-19] MEDS ORDERED: GABA300 PO (04:11)
[2021-10-19] MEDS ORDERED: DULO60 PO (04:11)
[2021-10-19 12:02] LABS: Albumin, Blood 2.9 g/dL (3.4-5.0); Anion Gap 6 mmol/L (6-16); Blood Urea Nitrogen 7 mg/dL (8-24); Bun/Creatinine Ratio 10.9 (12.0-20.0); CO2, Blood 31 mmol/L (21-32); Calcium, Blood 8.3 mg/dL (8.5-10.1); Chloride, Blood 106 mmol/L (98-108); Creatinine, Blood 0.64 mg/dL (0.40-1.00); Glomerular Filtration Rate >60 (60-); Glucose, Blood 97 mg/dL (70-99); Phosphorus, Blood 3.7 mg/dL (2.5-4.9); Potassium, Blood 3.9 mmol/L (3.5-5.5); Sodium, Blood 143 mmol/L (136-145)
--- NOTE | 2021-10-19 17:20 | NUR ---
SHIFT SUMMARY: PT HAS HAD NO ACUTE CHANGES TODAY. SHE WAS VERY DROWSY T/OUT TODAY BUT AWOKE TO VERBAL STIMULI. SHE WAS UP TO CHAIR FOR LUNCH TODAY WHILE SPOUSE VISITED AND THEN WENT BACK TO BED WHEN HE LEFT. PT IS PLEASANT AND COOPERATIVE WITH CARES.
--- NOTE | 2021-10-20 03:07 | NUR ---
RUG DYER SUMMARY TOLERATED HS MEDS WELL. VERBAL RESPONSE APPROPRIATE TO QUESTIONS ASKED. HAS BEEN RESTING QUIETLY WITH FEW INTERRUPTIONS SINCE HS. CALL LIGHT IN REACH.
[2021-10-20 06:26] LABS: BASOPHILS ABSOLUTE AUTO 0.08 K/mm3 (0.00-0.23); BASOPHILS PERCENT AUTO 1 % (0-2); EOSINOPHILS ABSOLUTE AUTO 0.16 K/mm3 (0.00-0.68); EOSINOPHILS PERCENT AUTO 2 % (0-6); Hematocrit 32.9 % (33.0-51.0); Hemoglobin 10.8 g/dL (11.5-16.0); IMMATURE GRAN ABSOLUTE AUTO 0.04 K/mm3 (0.00-0.10); IMMATURE GRAN PERCENT AUTO 1 % (0-1); LYMPHOCYTES ABSOLUTE AUTO 2.19 K/mm3 (0.84-5.20); LYMPHOCYTES PERCENT AUTO 32 % (21-46); MONOCYTES ABSOLUTE AUTO 0.69 K/mm3 (0.16-1.47); MONOCYTES PERCENT AUTO 10 % (4-13); Mean Corpuscular HGB 30.6 pg (26.0-34.0); Mean Corpuscular HGB Conc 32.8 g/dL (31.5-36.5); Mean Corpuscular Volume 93 fL (80-100); Mean Platelet Volume 10.9 fL (9.1-12.4); NEUTROPHILS ABSOLUTE AUTO 3.67 K/mm3 (1.96-9.15); NEUTROPHILS PERCENT AUTO 54 % (41-73); Platelet Count 335 K/mm3 (150-400); RDW Coefficient Variation 17.3 % (11.7-14.2); RDW Standard Deviation 57.4 fL (35.1-46.3); Red Blood Cell Count 3.53 M/mm3 (3.80-5.20); White Blood Cell Count 6.83 K/mm3 (4.00-11.30)
[2021-10-20 06:48] LABS: Albumin, Blood 2.8 g/dL (3.4-5.0); Anion Gap 6 mmol/L (6-16); Blood Urea Nitrogen 9 mg/dL (8-24); Bun/Creatinine Ratio 13.4 (12.0-20.0); CO2, Blood 30 mmol/L (21-32); Calcium, Blood 8.4 mg/dL (8.5-10.1); Chloride, Blood 107 mmol/L (98-108); Creatinine, Blood 0.67 mg/dL (0.40-1.00); Glomerular Filtration Rate >60 (60-); Glucose, Blood 94 mg/dL (70-99); Phosphorus, Blood 3.1 mg/dL (2.5-4.9); Potassium, Blood 3.8 mmol/L (3.5-5.5); Sodium, Blood 143 mmol/L (136-145)
--- NOTE | 2021-10-20 18:39 | NUR ---
SHIFT SUMMARY: PT A/O X 2-3, ONE PERSON ASSIST TO CHAIR WITH GAIT BELT AND WALKER. PLEASANT AND COOPERATIVE WITH CARES. PT WAS AWAKE MOST OF THE DAY WITH A COUPLE OF NAPS. SHE WAS UP TO CHAIR FOR ALL MEALS. SHE WAS NOT IMPULSIVE AND FOLLOWED COMMANDS WELL. NO ACUTE CONCERNS THIS SHIFT.
--- NOTE | 2021-10-21 05:02 | NUR ---
SHIFT SUMMARY NO ACUTE CHANGES THIS SHIFT. AOX3-SELF, PLACE, MONTH, FOLLOWING DIRECTIONS. FORGETFUL @TIMES. PLEASENT & COOPERATIVE. VSS. DENIES PAIN, N/V OR DYSPNEA. INCONT OF URINE. AWAITING PLACEMENT. CALL LIGHT IN REACH, WILL MONITOR.
[2021-10-21 05:07] LABS: BASOPHILS ABSOLUTE AUTO 0.07 K/mm3 (0.00-0.23); BASOPHILS PERCENT AUTO 1 % (0-2); EOSINOPHILS ABSOLUTE AUTO 0.16 K/mm3 (0.00-0.68); EOSINOPHILS PERCENT AUTO 2 % (0-6); Hematocrit 33.5 % (33.0-51.0); IMMATURE GRAN ABSOLUTE AUTO 0.03 K/mm3 (0.00-0.10); IMMATURE GRAN PERCENT AUTO 1 % (0-1); LYMPHOCYTES ABSOLUTE AUTO 2.05 K/mm3 (0.84-5.20); LYMPHOCYTES PERCENT AUTO 31 % (21-46); MONOCYTES ABSOLUTE AUTO 0.63 K/mm3 (0.16-1.47); MONOCYTES PERCENT AUTO 10 % (4-13); Mean Corpuscular HGB 30.8 pg (26.0-34.0); Mean Corpuscular HGB Conc 32.8 g/dL (31.5-36.5); Mean Corpuscular Volume 94 fL (80-100); Mean Platelet Volume 10.7 fL (9.1-12.4); NEUTROPHILS PERCENT AUTO 55 % (41-73); Platelet Count 342 K/mm3 (150-400); RDW Coefficient Variation 17.2 % (11.7-14.2); RDW Standard Deviation 58.6 fL (35.1-46.3); Red Blood Cell Count 3.57 M/mm3 (3.80-5.20); White Blood Cell Count 6.54 K/mm3 (4.00-11.30)
--- NOTE | 2021-10-21 18:08 | NUR ---
Pt A&O x 2. Activity & mobility assist x's 2. Spent morning sitting up in chair. OT & PT saw pt today. No changes to her diet. Eating well, is self feed. Waiting for SNF placement.
--- NOTE | 2021-10-22 05:24 | NUR ---
SHIFT SUMMARY NO ACUTE CHANGES THIS SHIFT. AOX3. FORGETFUL. VSS. DENIES PAIN, N/V OR DYSPNEA. AWAITING SAFE DC PLAN. CALL LIGHT & BED ALARM IN PLACE. WILL MONITOR.
--- NOTE | 2021-10-22 17:06 | NUR ---
Pt remains A&Ox3. Up in CH majority of the day w/ min assist w/GB x 1. PT, OT & ST worked w/pt today. Pt's appetite is good, is eating well. Denies pain, discomfort & anxiety. Continues to wait for placement. No changes today.
--- NOTE | 2021-10-23 06:50 | NUR ---
SHIFT SUMMARY PT RESTED WELL, NO C/O PAIN OR NAUSEA, REPOSITIONED FOR COMFORT, PT INCONTINENT OF URINE AND AMI CARE DONE NEEDED. PT A/O X 2-3 BUT FORGETFUL AT TIMES. VSS, ANTICIPATE D/C WHEN PLACEMENT DETERMINED.
--- NOTE | 2021-10-23 10:35 | NUR ---
NURSE NOTE PATIENT REFUSED MORNING MEDICATIONS. PATIENT STATES "I WANT TO SLEEP".
--- NOTE | 2021-10-23 17:41 | NUR ---
SHIFT SUMMARY PATIENT IS ALERT AND ORIENTED X3. PATIENT IS PLEASENT AND COOPERATIVE WITH CARE. PATIENT HAS BEEN SLEEPING FOR MUCH OF MORNING. PATIENT REFUSED MORNING MEDICATIONS DUE TO WANTING TO SLEEP. PATIENT WAS UP IN CHAIR FOR LUNCH AFTER PT WORKED WITH PATIENT. HAS BEEN IN ROOM MOST OF AFTERNOON. VITAL SIGNS REVIEWED. PATIENT HAS HAD NO COMPLAINTS OF PAIN, NAUSEA, SOB OR VOMITTING THIS SHIFT. PATIENT HAS HAD NO ACUTE EVENTS THIS SHIFT. BED IN LOWEST POSITION. CALL LIGHT IN PLACE. WILL MONITOR UNTIL SHIFT.
--- NOTE | 2021-10-24 06:38 | NUR ---
SHIFT SUMMARY PT RESTED WELL, NO C/O PAIN OR NAUSEA, INCONTINENT OF URINE, AMI CARE DONE NEEDED, PT WEARING ATTENDS. PT REPOSITIONED IN BED INDEPENDENTLY, VSS, A/0 X 2-3, FORGETFUL AT TIMES. ANTICIAPTE D/C WHEN PLACEMENT DETERMINED.
--- NOTE | 2021-10-24 18:49 | NUR ---
SHIFT SUMMARY- PT SLEPT MOST OF THIS SHIFT. SHE HAS BEEN INC THIS SHIFT. HER WAS AT BEDSIDE OFF AND ON DRUING THIS SHIFT. SHE IS EATING AND DRINKING WELL. HER BED IS IN THE LOW POSITION AND CALL LIGHT IS WITIN REACH
--- NOTE | 2021-10-25 06:09 | NUR ---
SHIFT SUMMARY PT RESTED WELL, NO C/O PAIN, NILESH PO, INCONTINENT OF URINE, AMI CARE DONE NEEDED. PT REPOSITIONS HERSELF IN BED INDEPENDENLTY, SKIN INTACT, A/O X 3, FORGETFUL AT TIMES. ANTICIPATE D/C WHEN PLACEMENT DETERMINED.
[2021-10-25 06:14] LABS: Anion Gap 7 mmol/L (6-16); Blood Urea Nitrogen 14 mg/dL (8-24); Bun/Creatinine Ratio 22.7 (12.0-20.0); CO2, Blood 27 mmol/L (21-32); Calcium, Blood 8.7 mg/dL (8.5-10.1); Chloride, Blood 107 mmol/L (98-108); Creatinine, Blood 0.62 mg/dL (0.40-1.00); Glomerular Filtration Rate >60 (60-); Glucose, Blood 97 mg/dL (70-99); Potassium, Blood 3.8 mmol/L (3.5-5.5); Sodium, Blood 141 mmol/L (136-145)
--- NOTE | 2021-10-25 15:38 | NUR ---
SHIFT SUMMARY NO ACUTE CHANGES TO PRESENT THIS SHIFT. PT SLEEPING AT START OF SHIFT, BUT WAKES EASILY FOR CARE. PT IS VERY UNMOTIVATED TO GET OOB OR UP TO CHAIR FOR MEALS. PT DID GET UP TO EOB FOR LUNCH WITH ENCOURAGEMENT. PER REPORT, PT IS INCONTINENT OF BOWEL AND BLADDER, BECAUSE OF LACK OF MOTIVATION TO GET UP AND GO TO BTHRM. PT MOSTLY SLEEPS ALL DAY. HX OF METH, HOMELESS, AND WAITING PLACEMENT. DENIED FURTHER NEEDS AT THIS TIME. CALL LT IN REACH.
[2021-10-26 05:20] LABS: BASOPHILS ABSOLUTE AUTO 0.11 K/mm3 (0.00-0.23); BASOPHILS PERCENT AUTO 2 % (0-2); EOSINOPHILS ABSOLUTE AUTO 0.15 K/mm3 (0.00-0.68); EOSINOPHILS PERCENT AUTO 2 % (0-6); Hematocrit 33.8 % (33.0-51.0); Hemoglobin 11.1 g/dL (11.5-16.0); IMMATURE GRAN ABSOLUTE AUTO 0.03 K/mm3 (0.00-0.10); IMMATURE GRAN PERCENT AUTO 1 % (0-1); LYMPHOCYTES ABSOLUTE AUTO 2.09 K/mm3 (0.84-5.20); LYMPHOCYTES PERCENT AUTO 33 % (21-46); MONOCYTES ABSOLUTE AUTO 0.63 K/mm3 (0.16-1.47); MONOCYTES PERCENT AUTO 10 % (4-13); Mean Corpuscular HGB 30.9 pg (26.0-34.0); Mean Corpuscular HGB Conc 32.8 g/dL (31.5-36.5); Mean Corpuscular Volume 94 fL (80-100); Mean Platelet Volume 11.1 fL (9.1-12.4); NEUTROPHILS PERCENT AUTO 52 % (41-73); Platelet Count 333 K/mm3 (150-400); RDW Coefficient Variation 16.5 % (11.7-14.2); RDW Standard Deviation 57.2 fL (35.1-46.3); Red Blood Cell Count 3.59 M/mm3 (3.80-5.20); White Blood Cell Count 6.31 K/mm3 (4.00-11.30)
--- NOTE | 2021-10-26 06:10 | NUR ---
PM SHIFT SUMMARY PATIENT SLEPT THE VAST MAJORITY OF THE SHIFT. SHE HAS A STRONG, PRODUCTIVE COUGH.SHE IS UNABLE TO HAVE THIN LIQUIDS OR USE STRAWS PER RESULTS OF MOD BARIUM SWALLOW TEST. SHE IS HOMELESS ALONG WITH HER . 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 SHE HAS NO REAL MOTIVATION TO BETTER HERSELF. PER REPORT, SHE IS ABLE TO GET UP WITH WALKER TO CHAIR, SO PLAN IS TO TRY A BEDSIDE COMMODE WITH HER SOON. HOWEVER, DUE TO LACK OF MOTIVATION, SHE JUST GOES IN THE ATTENDS IN HER BED. SHE HAD NO COMPLAINTS DURING THE SHIFT.
--- NOTE | 2021-10-26 16:00 | NUR ---
SHIFT SUMMARY PT SLEEPING AT START OF SHIFT. WOKE EASILY FOR CARE. PT ASSISTED TO CHAIR AT BS FOR BREAKFAST AND LUNCH SO FAR TODAY. 1P ASSIST USING GB. PT'S IN TO VISIT FOR A WHILE THIS AFTERNOON. NO ACUTE CHANGES. PT CONTINUES TO WAIT FOR D/C. CALL LT IN REACH.
--- NOTE | 2021-10-27 05:59 | NUR ---
PER AM REPORTS, PATIENT GOT UP INTO CHAIR FOR EACH OF HER MEALS. HOWEVER, SHE STILL HAS NO MOTIVATION TO LET US KNOW WHEN SHE NEEDS TO GO TO THE RESTROOM. WE CHANGED HER A FEW TIMES DURING THE SHIFT, WHICH IS THE USUAL. SHE HAS BEEN DEEMED MEDICALLY STABLE FOR DC. AT THIS TIME, WE ARE AWAITING PLACEMENT AT A FACILITY. SHE IS ON THE WAITLIST AT [facility] AND HER INFORMATION HAS BEEN SENT TO OTHER FACILITIES WELL. NO COMPLAINTS DURING THE SHIFT.
--- NOTE | 2021-10-27 17:49 | NUR ---
PT UP TO FOR EVERY MEAL TODAY. PHYS THERAPY WALKED PT IN HALLWAY WITH A WALKER THIS AFTERNOON. AMI CARE DONE, HAD SMALL BM & LINEN CHANGE DONE WITH MIN ASSIST X 1. TEMP UP TO 99.9 AFTER LUNCH WHILE PT WAS IN BED, PT WAS COVERED IN MANY BLAMKETS. UNCOVERED BLANKETS THEN UP IN , TEMP RETURNED TO 98.2. AT END OF SHIFT PT UP IN FOR DINNER AND DOING WELL, NO COMPLAINTS. CONTINUING TO WAIT FOR PLACEMENT UPON DC.
--- NOTE | 2021-10-28 06:05 | NUR ---
SHIFT SUMMARY NO ACUTE CHANGES THIS SHIFT. AOX3-SELF, PLACE, FOLLOWING DIRECTIONS. FORGETFUL @TIMES. VSS. DENIES PAIN, N/V OR DYSPNEA. PENDING PLACEMENT. CALL LIGHT & BED ALARM IN PLACE. WCTM.
--- NOTE | 2021-10-28 19:12 | NUR ---
NO CHANGES TODAY. CONTINUING TO WAIT ON SNF PLACEMENT. SHE SAT UP IN THE CHAIR MAJORITY OF THE DAY. VSS. NO C/O PAIN. APPETITE GOOD.
--- NOTE | 2021-10-29 07:22 | NUR ---
SHIFT SUMMARY: NO ACUTE CHANGES THIS SHIFT, VSS. PATIENT DID AMB. TO THE BATHROOM WITH FWW AND Ax1 TO VOID AND HAVE A BM. PATIENT IS INC. MOST OF THE TIME BUT DOES HAVE THE SENSATION AND KNOWS WHEN SHE HAS TO ELLIMINATE.
--- NOTE | 2021-10-29 18:02 | NUR ---
SHIFT SUMMARY: PATIENT ALERT AND ORIENTED X 1-2, ABLE TO VERBALIZE NEEDS. NO SOB AT RA, NO ACUTE CHANGES. DENIES PAIN OR DISCOMFORT THROUGHOUT THE SHIRT.
--- NOTE | 2021-10-30 04:37 | NUR ---
SHIFT SUMMARY PATIENT HAD NO ACUTE CHANGES. AXOX 1-2 AND ABLE TO MAKE NEEDS KNOWN. SBA W/FWW TO BSC. POWERGLIDE ALIYA INTACT. VSS/AFEBRILE. DENIES PAIN, SOB, AND N/V. COOPERATIVE WITH CARE. CALL LIGHT IN REACH. BED IN LOWEST POSITION. WILL CONTINUE TO MONITOR UNTIL DAY SHIFT NURSE ASSUMES CARE.
[2021-10-30 05:57] LABS: BASOPHILS PERCENT AUTO 1 % (0-2); EOSINOPHILS ABSOLUTE AUTO 0.09 K/mm3 (0.00-0.68); EOSINOPHILS PERCENT AUTO 1 % (0-6); Hematocrit 32.6 % (33.0-51.0); Hemoglobin 10.8 g/dL (11.5-16.0); IMMATURE GRAN ABSOLUTE AUTO 0.05 K/mm3 (0.00-0.10); IMMATURE GRAN PERCENT AUTO 1 % (0-1); LYMPHOCYTES ABSOLUTE AUTO 2.09 K/mm3 (0.84-5.20); LYMPHOCYTES PERCENT AUTO 29 % (21-46); MONOCYTES ABSOLUTE AUTO 0.65 K/mm3 (0.16-1.47); MONOCYTES PERCENT AUTO 9 % (4-13); Mean Corpuscular HGB 30.6 pg (26.0-34.0); Mean Corpuscular HGB Conc 33.1 g/dL (31.5-36.5); Mean Corpuscular Volume 92 fL (80-100); Mean Platelet Volume 11.3 fL (9.1-12.4); NEUTROPHILS ABSOLUTE AUTO 4.19 K/mm3 (1.96-9.15); NEUTROPHILS PERCENT AUTO 58 % (41-73); Platelet Count 297 K/mm3 (150-400); RDW Coefficient Variation 15.8 % (11.7-14.2); RDW Standard Deviation 53.9 fL (35.1-46.3); Red Blood Cell Count 3.53 M/mm3 (3.80-5.20); White Blood Cell Count 7.17 K/mm3 (4.00-11.30)
[2021-10-30 06:17] LABS: Anion Gap 4 mmol/L (6-16); Blood Urea Nitrogen 13 mg/dL (8-24); Bun/Creatinine Ratio 20.5 (12.0-20.0); CO2, Blood 30 mmol/L (21-32); Calcium, Blood 8.5 mg/dL (8.5-10.1); Chloride, Blood 107 mmol/L (98-108); Creatinine, Blood 0.63 mg/dL (0.40-1.00); Glomerular Filtration Rate >60 (60-); Glucose, Blood 94 mg/dL (70-99); Potassium, Blood 3.6 mmol/L (3.5-5.5); Sodium, Blood 141 mmol/L (136-145)
[2021-10-30 09:27] LABS: Influenza A, PCR NEGATIVE (NEGATIVE); Influenza B, PCR NEGATIVE (NEGATIVE); Resp Syncytial Virus, PCR NEGATIVE (NEGATIVE); SARS-Cov-2 (COVID-19) PCR, MMC NEGATIVE (NEGATIVE)
--- NOTE | 2021-10-30 11:45 | NUR ---
PATIENT AWAKE, ALERT AND ORIENTED X 2-3, ABLE TO VERBALIZE NEEDS. NO SOB AT RA, DENIES PAIN OR DISCOMFORT. COVID TEST NEGATIVE THIS MORNINIG. PATIENT DISCHARGING TODAY TO [facility]. REPORT CALLED TO RECEIVING NURSE, SHANI. EMANUEL D/C'D, PATIENT TOLERATED WELL.
== END 2021-10-30 13:00 | DRG 80 ==
LOC: ER 18:35 → MEDS 23:39 → ERHOLD 23:39 → ICUW 23:39 → PCU 10-12 15:20 → MEDS 10-15 19:47
PROVIDERS: Family Medicine; Internal Medicine; Physician Assistant; Student in an Organized Health Care Education/Training Program; ADMIT Internal Medicine
DX: E03.5 Myxedema coma (principal); G92.9 Unspecified toxic encephalopathy; I69.354 Hemiplegia and hemiparesis following cerebral infarction affecting left non-dominant side; N39.0 Urinary tract infection, site not specified; Z68.43 Body mass index [BMI] 50.0-59.9, adult; R47.01 Aphasia; Z20.822 Contact with and (suspected) exposure to COVID-19; T68.XXXA Hypothermia, initial encounter; R00.1 Bradycardia, unspecified; E87.6 Hypokalemia; I95.9 Hypotension, unspecified; B96.20 Unspecified Escherichia coli [E. coli] as the cause of diseases classified elsewhere; Z28.21 Immunization not carried out because of patient refusal; E86.0 Dehydration; R06.89 Other abnormalities of breathing; R73.03 Prediabetes; J44.9 Chronic obstructive pulmonary disease, unspecified; E66.9 Obesity, unspecified; F15.10 Other stimulant abuse, uncomplicated; F11.10 Opioid abuse, uncomplicated; Z59.00 Homelessness unspecified; E78.5 Hyperlipidemia, unspecified; I10 Essential (primary) hypertension; F19.10 Other psychoactive substance abuse, uncomplicated; E03.9 Hypothyroidism, unspecified; F17.210 Nicotine dependence, cigarettes, uncomplicated; Z79.82 Long term (current) use of aspirin; Z79.02 Long term (current) use of antithrombotics/antiplatelets; Z79.899 Other long term (current) drug therapy; Z88.8 Allergy status to other drugs, medicaments and biological substances; Z91.14 Patient's other noncompliance with medication regimen; Z88.5 Allergy status to narcotic agent; Z90.710 Acquired absence of both cervix and uterus
CPT/HCPCS: 0241U; 31720; 36415; 51701; 51702; 70450; 71045; 74230; 80048; 80053; 80069; 80400; 81001; 82533; 82803; 82947; 83605; 83880; 84132; 84439; 84443; 84481; 85025; 85730; 87040; 87077; 87086; 87186; 92526; 92610; 92611; 93005; 93010; 93306; 93880; 94660; 94762; 96365; 96366; 96375; 97110; 97112; 97116; 97163; 97164; 97166; 97530; 97535; 99285-25; A9270; C1751; G0480; J0696; J0834; J1650; J1720; J3480; J7030; J7042; J7060